=== PATIENT | female | born 1935 | race Caucasian/White ===

== ENCOUNTER 2017-06-19 12:43 | Outpatient (CLI) | payer MEDICARE ==
--- NOTE | 2017-06-19 14:28 | MRI ---
NONCONTRAST ENHANCED MRI OF THE THORACIC SPINE: HISTORY: Thoracic spine pain (M54.6). TECHNIQUE: Multiplanar, multisequence, noncontrast enhanced MRI of the thoracic spine obtained. FINDINGS: Images demonstrate some edema along the anterior aspect of the inferior T7 and the superior T8 endpl ates. Broad-based disk bulge seen at T6-T7, T7-T8, T11-T12. and T12-L1. No significant degree of central stenosis or neural foraminal narrowing is seen. The spinal cord is unremarkable. IMPRESSION: Some broad-based multilevel disk bulges but no significant evidence of central stenosis or neural fo raminal narrowing. POS: [facility]
== END 2017-06-19 12:44 | disposition home or self-care (01) ==
LOC: MRI 12:43
PROVIDERS: ATTEND Nurse Practitioner Family
DX: M54.6 Pain in thoracic spine (principal); M51.24 Other intervertebral disc displacement, thoracic region
CPT/HCPCS: 72146

== ENCOUNTER 2017-06-26 09:41 | Outpatient (CLI) | payer MEDICARE ==
[2017-06-26 11:02] LABS: Bilirubin Negative (Negative); Blood, Urine Negative (Negative); Glucose, Urine (Dipstick) Negative (Negative); Ketone, Urine Negative (Negative); Nitrite Negative (Negative); Protein, Urine (Dipstick) Negative (Neg-Trace); Urobilinogen 0.2 mg/dL (0.2-1.0)
[2017-06-26 11:08] LABS: Bacteria/HPF None Seen HPF (None Seen); Hyaline Casts/LPF 0-3 HYALINE CAST LPF (0-3 Hyaline); Squamous Epithelial 0-3 HPF (0-3); WBC/HPF 0-3 HPF (0-3)
[2017-06-26 11:17] LABS: Anion Gap 13 mmol/L (10-20); BUN (Urea Nitrogen) 16 mg/dL (9.8-20.1); Calc. Creatinine Clearance 0 mL/min (70-130); Calcium 9.5 mg/dL (7.8-10.44); Carbon Dioxide 23 mmol/L (23-31); Chloride 105 mmol/L (98-107); Estimated GFR-MDRD 51; Uric Acid 9.3 mg/dL (2.6-6.0)
--- NOTE | 2017-06-26 14:30 | RAD ---
SUPINE ABDOMEN: History: Kidney stone. FINDINGS/IMPRESSION: There are two calculi overlying the midpole of the left kidney, each measuring approximately 5 mm. Linear calcifications seen to the left of the L3 vertebra could potentially represent calcifications in the mid left ureter. Consider CT scan abdomen/pelvis if there is concern of ureteral calculus. POS: [facility]
--- NOTE | 2017-06-26 14:59 | ULT ---
RENAL SONOGRAM: Date: 06-26-17 History: Renal calculi. FINDINGS: Right kidney measures 9.9 cm x 4 cm with the left kidney measuring 10.2 cm x 4.2 cm. There is a small anechoic structure seen in the midportion of the right kidney which measures 1.6 cm in maximal dimensions and there is evidence of posterior acoustic enhancement. This has sonographic findings most suggestive of a small cyst. This was not imaged on the prior exam. There is no hydronephrosis involving the kidneys bilaterally and no obvious renal calculus delineate d. Urinary bladder is partially distended and has a grossly normal sonographic appearance. IMPRESSION: 1. Small right renal cyst. 2. No evidence of hydronephrosis. 3. No obvious renal calculus is delineated on the sonographic evaluation involving either kidney. POS: [facility]
== END 2017-06-26 09:42 | disposition home or self-care (01) ==
LOC: ULT 09:41
PROVIDERS: ATTEND Urology
DX: N18.9 Chronic kidney disease, unspecified (principal); M10.9 Gout, unspecified; N20.2 Calculus of kidney with calculus of ureter; N28.1 Cyst of kidney, acquired
CPT/HCPCS: 36415; 74000; 76770; 80048; 81001; 83970; 84550; 87086

== ENCOUNTER 2017-09-29 09:25 | Outpatient (CLI) | payer MEDICARE ==
--- NOTE | 2017-09-29 12:31 | MRI ---
MRI OF THE ABDOMEN WITHOUT AND WITH CONTRAST: COMPARISON: CT abdomen/pelvis 07/05/17, 01/28/14, 05/15/13. HISTORY: Left renal calcifications and left adrenal mass. TECHNIQUE: Multiplanar, multisequence MR images were obtained of the abdomen without and with IV contrast. FINDINGS: There is a mass in the left adrenal gland measuring approximately 2.6 cm in greatest dimension. This mass is well circumscribed and demonstrates loss of signal on [id number] images compared to the in -phase images consistent with a fat-containing adrenal adenoma. This mass is grossly stable in size compared to exams dating back to 2013. There are multiple well-circumscribed foci of high T2 signal in the liver that are nonenhancing measu ring up to 3.1 cm in size which represent cysts. No biliary dilatation is seen. The calcifications in the left kidney on CT cannot be seen with MRI on today's study. No hydronephrosis is seen. The g allbladder, kidneys, adrenal glands, spleen, and pancreas are unremarkable. No abdominal adenopathy is seen. Degenerative changes are seen in the spine. IMPRESSION: 1. Left adrenal adenoma. 2. Hepatic cysts. POS: [facility]
[2017-09-29] MEDS ORDERED: Gadobenate Dimeglumine 529 MG/1 ML (20ML VIAL) ONE (16:52)
== END 2017-09-29 09:26 | disposition home or self-care (01) ==
LOC: MRI 09:25
PROVIDERS: ATTEND Urology
DX: E27.9 Disorder of adrenal gland, unspecified (principal); D35.02 Benign neoplasm of left adrenal gland; K76.89 Other specified diseases of liver; M10.9 Gout, unspecified; N20.0 Calculus of kidney; N18.3 Chronic kidney disease, stage 3 (moderate)
CPT/HCPCS: 36415; 74183; 80048; 82088; 82530; 83835; 84244; 84550; A9579

== ENCOUNTER 2017-11-10 16:34 | Outpatient (CLI) | payer MEDICARE ==
[2017-11-10 12:06] LABS: #Eosinphils 0.2 thou/uL (0.0-0.7); #Lymphocytes 1.7 thou/uL (1.20-3.40); #Monocytes 0.6 thou/uL (0.11-0.59); #Neutrophils 3.4 thou/uL (1.40-6.50); %Basophils 0.6 % (0.0-1.0); %Eosinophils 2.9 % (0.0-10.0); %Lymphocytes 29.1 % (21.0-51.0); %Monocytes 9.8 % (0.0-10.0); %Neutrophils 57.5 % (42.0-75.0); Bilirubin Negative (Negative); Blood, Urine Negative (Negative); Clarity CLEAR (Clear); Glucose, Urine (Dipstick) Negative (Negative); Hemoglobin 15.8 g/dL (12.0-16.0); Leukocyte Small (Negative); Mean Corpuscular HGB CONC 32.9 g/dL (32.0-36.0); Mean Corpuscular Hemoglobin 32.6 pg (27.0-31.0); Mean Corpuscular Volume 99.3 fl (81.0-99.0); Mean Platelet Volume 7.7 fL (7.4-10.4); Nitrite Negative (Negative); Platelet Count 235 thou/uL (130-400); Protein, Urine (Dipstick) Negative (Neg-Trace); Red Blood Cell (RBC) Count 4.84 mill/uL (4.20-5.40); Specific Gravity, Urine 1.018 (1.002-1.036); Urobilinogen 0.2 mg/dL (0.2-1.0); White Blood Cell (WBC) Count 5.9 thou/uL (4.8-10.8)
[2017-11-10 12:11] LABS: INR-International Normal Ratio 0.9; Prothrombin Time 12.6 SEC (12.0-14.7)
[2017-11-10 12:20] LABS: Bacteria/HPF None Seen HPF (None Seen); Hyaline Casts/LPF 0-3 HYALINE CAST LPF (0-3 Hyaline); RBC/HPF 0-3 HPF (0-3); Squamous Epithelial 0-3 HPF (0-3)
[2017-11-10 12:27] LABS: Anion Gap 8 mmol/L (10-20); BUN (Urea Nitrogen) 17 mg/dL (9.8-20.1); Calc. Creatinine Clearance 0 mL/min (70-130); Carbon Dioxide 28 mmol/L (23-31); Chloride 107 mmol/L (98-107); Estimated GFR-MDRD 57; Glucose 95 mg/dL (83-110); Sodium 139 mmol/L (136-145)
--- NOTE | 2017-11-10 13:43 | RAD ---
CHEST 2 VIEWS: History Preop. COMPARISON: 09/18/17. FINDINGS: Cardiac silhouette and pulmonary vasculature are unremarkable. Mediastinum is midline. There is no confluent airspace consolidation, pneumothorax, or pleural fluid evident. Rightward convex curvature of the upper thoracic spine is apparent. IMPRESSION: No active cardiopulmonary abnormalities are demonstrated. POS: [facility]
--- NOTE | 2017-11-11 08:10 | EKG ---
Test Reason : Blood Pressure : / mmHG Vent. Rate : 062 BPM Atrial Rate : 062 BPM P-R Int : 186 ms QRS Dur : 086 ms QT Int : 426 ms P-R-T Axes : 022 -28 007 degrees QTc Int : 432 ms Normal sinus rhythm Voltage criteria for left ventricular hypertrophy Nonspecific ST abnormality Abnormal ECG When compared with ECG of 27-OCT-2014 09:36, QRS axis Shifted left Confirmed by DR. Rosalia VINES ([id number]) on 11/11/2017 8:10:27 AM Referred By: GUILLERMO Confirmed By:DR. Rosalia VINES
== END 2017-11-10 16:35 | disposition home or self-care (01) ==
LOC: LABBT 16:34
PROVIDERS: ATTEND Orthopaedic Surgery
DX: Z01.818 Encounter for other preprocedural examination (principal); M17.11 Unilateral primary osteoarthritis, right knee
CPT/HCPCS: 71046; 80048; 81001; 85025; 85610; 86850; 86900; 86901; 87081; 93005; 93010

== ENCOUNTER 2017-11-14 06:43 | Day surgery (SDC) | payer MEDICARE ==
[2017-11-10 11:09] VITALS: BMI 29.5
[2017-11-14] MEDS ORDERED: diphenhydrAMINE 25 MG CAP PO PRN (06:54)
[2017-11-14] MEDS ORDERED: Promethazine HCl 25 MG/ML VIAL IM PRN ×3 (06:54→10:21)
[2017-11-14] MEDS ORDERED: Acetaminophen 325 MG TAB PO PRN (06:54)
[2017-11-14] MEDS ORDERED: Ondansetron HCl/PF 4 MG/2 ML Vial IVP PRN ×3 (06:54→10:21)
[2017-11-14] MEDS ORDERED: Zolpidem Tartrate 5 MG TAB PO PRN ×2 (06:54→08:48)
[2017-11-14] MEDS ORDERED: oxyCODONE/Acetaminophen 5 mg/325 mg Tablet PO PRN ×2 (06:57)
[2017-11-14] MEDS ORDERED: Tranexamic Acid 1,000 MG in Sodium Chloride 0.9% 100 ML IVPB SCH (07:00)
[2017-11-14] MEDS ORDERED: Levofloxacin 500 mg/D5W 100 ml Premix Bag ONE (07:41)
[2017-11-14] MEDS ORDERED: Midazolam HCl 2 mg/2 ml Vial ONE (08:14)
[2017-11-14] MEDS ORDERED: Fentanyl 250 MCG/5 ML VIAL ONE ×2 (08:15→10:39)
[2017-11-14] MEDS ORDERED: Ropivacaine HCl/PF 250 ML in Premix Bag 1 BAG NERVE BLCK SCH (08:48)
[2017-11-14] MEDS ORDERED: Fentanyl 100 MCG/2 ML VIAL IV PRN (08:49)
[2017-11-14] MEDS ORDERED: HYDROcodone/Acetaminophen 7.5/325 mg Tablet PO PRN (08:51)
[2017-11-14] MEDS ORDERED: Fentanyl 100 MCG/2 ML VIAL ONE (09:21)
[2017-11-14] MEDS ORDERED: Promethazine HCl 25 MG/ML VIAL SLOW IVP PRN (10:21)
--- NOTE | 2017-11-14 10:27 | OP ---
DATE OF PROCEDURE: 11/14/2017 TITLE OF PROCEDURE: Right total knee arthroplasty using [place] [employer] 3 femur, 3 tibia, 9 mm CSX 3 polyethylene, and A29 patella. SURGEON: Jose Sapp M.D. TESTER VIBRATOR EQUIPMENT: Mani Caputo PA-C. BLOOD LOSS: Minimal. SPECIMEN: None. DRAINS: None. COMPLICATIONS: None. TOURNIQUET TIME: 47 minutes. PROCEDURE IN DETAIL: After informed consent was obtained in the preoperative holding area. The cherise ent was taken to the operative suite where general anesthesia was induced. Once adequate level of ge neral anesthesia was obtained, the patient was positioned and a well-padded tourniquet was placed kandi und the right proximal thigh. The right lower extremity was then prepped and draped in the usual margie rile fashion. Prior to exsanguination, a time out was called and all members of the surgical team ag malcolm upon site, surgeon, and patient. The extremity was then exsanguinated and the tourniquet was ra ised. A midline longitudinal incision was then made directly over the patella extending two fingerbr eadths above the superior pole of the patella and two fingerbreadths inferior to the inferior patella r pole of the patella. Deeper subcutaneous layers were dissected sharply and local bleeding was cont rolled with Bovie electrocautery. A quad tendon longitudinal split was then made sharply and a media n parapatellar arthrotomy was carried out both sharp and with Bovie electrocautery, carried down to o ne fingerbreadth medial to the tibial tubercle. The knee was then placed into flexion and the patell a was everted nicely, and a copious fat pad ectomy was performed allowing for greater exposure of the tibia. The computer-assisted distal femoral fiducial was then placed and pinned firmly, and the dis doreen femoral cutting guide was pinned firmly into place. The oscillating saw was then used to remove the appropriate amount of bone. The 4-in-1 cutting block was then placed on the distal femur and the oscillating saw was used to remove the appropriate amount of bone off of the anterior, posterior, an d chamfer cuts. After completion of bone cuts, the anterior cruciate ligament was resected sharply a nd the posterior cruciate ligament retractor was placed and the tibia was subluxed for better exposur e. Partial meniscectomies were carried out, and the tibial computer-assisted fiducial was pinned, an d the cutting guide was placed. Oscillating saw was then used to remove the bone with Hohmann retrac tors used to take care and protect the collateral ligaments. After the tibial resection was performe d, a laminar annual giving manager was placed in between the freshened bone cuts. The knee placed at 90 degrees a nd further bilateral meniscectomies were carried out, and the curved osteotome and curettage was used to remove any excess bone spurs in the posterior compartment. Exparel was then injected into the po sterior capsule, nasir-articular synovia, pre-patella synovia, and musculature surrounding the capsule . The trial femoral component, tibial baseplate were placed with the appropriate polyethylene trial insert with an appropriate polyethylene spacer and patellar button. The knee was taken through full range of motion with flexion and extension from 0-90 degrees and patellar broach squarely in the troc hlea without any squinting or subluxation noted. The knee was also stable to varus and valgus stress ing at 0, 15, 45, and 90 degrees of flexion. The drawer was negative. All trial components were then removed and the keel punch was used to provide the appropriate defect in the tibia with a mallet. Heron he freshened bone cuts were copiously irrigated with pulsatile lavage of about 1-1/2 liters to remove all excess debris. The freshened bone cuts were then dried and with suction and lap sponge. The kn ee was placed in flexion and retractors were placed to provide access to all bone cuts. Tobramycin i mpregnated methyl methacrylate cement was then placed on the freshened bone cuts and implants which w ere malleted firmly into place. Curettage and [place] elevators were used to remove any excess bone ce ment. The knee was placed into full extension and the patellar button was placed under compression, and the cement was allowed to cure. Once completed, the components were again taken through full ran ge of motion and copious irrigation of the knee was carried out with another liter of normal saline. All components were inspected fully with full range of motion and varus and valgus stressing. There was no laxity noted and full extension was observed clinically. Primary closure was accomplished wit h #2 interrupted Vicryl stitch of the arthrotomy defect. This was oversewn with a #2 running Adam mckinley stitch. The gravitational platelet system was then injected into the arthrotomy prior to closu re. The subcutaneous layer was then closed with a running 0 barbed Monocryl stitch and skin closure accomplished with a running subcuticular 3-0 Monocryl barbed Quill stitch and augmented with cement o n the skin. Tourniquet was lowered. Good spontaneous return of distal pulses was noted clinically a nd a sterile dressing was applied to the incision. The procedure was terminated without any complica tions. The patient was awakened in the operative suite and the tourniquet was removed, and the patie nt was taken to the recovery room in stable condition.
--- NOTE | 2017-11-14 11:38 | RAD ---
PORTABLE RIGHT KNEE TWO VIEWS: History: Total knee replacement. FINDINGS/IMPRESSION: There are recent post op changes of total knee arthroplasty in good position and alignment. Soft tiss ue air is present. POS: H
--- NOTE | 2017-11-14 12:54 | PDOC.PN ---
- Subjective Encounter Start Date: 11/14/17 Encounter Start Time: 12:53 -: old records requested/rev Patient seen and examined. No new complaints. No overnight events s/p knee replacement, consulted for medical management has nerve block, has foey, pain controlled - Objective MAR Reviewed: Yes Vital Signs & Weight: Weight Weight 172 lb I&O: 11/13/17 11/14/17 11/15/17 06:59 06:59 06:59 Intake Total 150 Output Total 200 Balance -50 Radiology Reviewed by me: Yes Phys Exam - Physical Examination Constitutional: NAD HEENT: PERRLA, moist MMs, sclera anicteric Neck: no JVD, supple Respiratory: no wheezing, no rales, no rhonchi Cardiovascular: RRR, no significant murmur, no rub Gastrointestinal: soft, non-tender, no distention, positive bowel sounds Musculoskeletal: no edema, pulses present Neurological: non-focal, normal sensation Psychiatric: normal affect, A&O x 3 Skin: no rash, normal turgor Dx/Plan (1) Status post right knee replacement Code(s): Z96.651 - PRESENCE OF RIGHT ARTIFICIAL KNEE JOINT Status: Acute (2) Hypertension Code(s): I10 - ESSENTIAL (PRIMARY) HYPERTENSION Status: Chronic (3) Gout Code(s): M10.9 - GOUT, UNSPECIFIED Status: Chronic (4) Dyslipidemia Code(s): E78.5 - HYPERLIPIDEMIA, UNSPECIFIED Status: Chronic (5) Anxiety and depression Code(s): F41.8 - OTHER SPECIFIED ANXIETY DISORDERS Status: Chronic (6) GERD (gastroesophageal reflux disease) Code(s): K21.9 - GASTRO-ESOPHAGEAL REFLUX DISEASE WITHOUT ESOPHAGITIS Status: Chronic (7) Chronic low back pain Code(s): M54.5 - LOW BACK PAIN; G89.29 - OTHER CHRONIC PAIN Status: Chronic - Plan cont current plan of care, PT/OT * continue aspirin for DVT prophylaxis * continue home medication * code status-full code, pt is making decision * medication reviewed as below * symptomatic treatment * nerve block * pain control with pain meds * PT as per [facility] protocol treatment Review of Systems - Review of Systems Constitutional: negative: fever, chills, sweats, weakness, malaise, other ENT: negative: Ear Pain, Ear Discharge, Nose Pain, Nose Discharge, Nose Congestion, Mouth Pain, Mouth Swelling, Throat Pain, Throat Swelling, Other Respiratory: negative: Cough, Dry, Shortness of Breath, Hemoptysis, SOB with Excertion, Pleuritic Pain, Sputum, Wheezing Cardiovascular: negative: chest pain, palpitations, orthopnea, paroxysmal nocturnal dyspnea, edema, light headedness, other Gastrointestinal: negative: Nausea, Vomiting, Abdominal Pain, Diarrhea, Constipation, Melena, Hematochezia, Other Genitourinary: negative: Dysuria, Frequency, Incontinence, Hematuria, Retention , Other Musculoskeletal: negative: Neck Pain, Shoulder Pain, Arm Pain, Back Pain, Hand Pain, Leg Pain, Foot Pain, Other Skin: negative: Rash, Lesions, Almas, Bruising, Other - Medications/Allergies Allergies/Adverse Reactions: Allergies Allergy/AdvReac Type Severity Reaction Status Date / Time bacitracin [From Polysporin] Allergy Verified 11/10/17 11:11 codeine Allergy Verified 11/10/17 11:11 Penicillins Allergy Verified 11/10/17 11:11 polymyxin B sulfate Allergy Verified 11/10/17 11:11 [From Polysporin] tramadol Allergy Verified 11/10/17 11:11 Medications: Current Medications Acetaminophen (Tylenol) 650 mg PO Q4H PRN PRN Reason: DUNCAN/ T > 101F; Mild Pain (1-3) Hydrocodone Bitart/Acetaminophen ([place] 7.5/325) 1 tab PO Q4H PRN PRN Reason: Mild Pain (1-3) Hydrocodone Bitart/Acetaminophen ([place] 7.5/325) 2 tab PO Q4H PRN PRN Reason: Moderate Pain (4-6) Allopurinol (Zyloprim) 300 mg PO HS [facility] Amlodipine Besylate (Norvasc) 5 mg PO DAILY [facility] Aspirin (Ecotrin) 81 mg PO BID [facility] Diphenhydramine HCl (Benadryl) 25 mg PO Q6H PRN PRN Reason: Itching Fentanyl (Sublimaze) 50 mcg IV Q1H PRN PRN Reason: Breakthrough pain Fentanyl (Pacu-Sublimaze) 50 mcg SLOW IVP Q10MIN PRN PRN Reason: Moderate to Severe Pain (6-10) Stop: 11/14/17 13:21 Ferrous Gluconate (Fergon) 324 mg PO BID [facility] Hydralazine HCl (Apresoline) 50 mg PO BID [facility] Levofloxacin 500 mg/ Device 100 mls @ 100 mls/hr IVPB 0900 [facility] Stop: 11/15/17 09:59 Sodium Chloride (Normal Saline 0.9%) 1,000 mls @ 100 mls/hr IV .Q10H [facility] Vancomycin HCl 1 gm/ Device 200 mls @ 200 mls/hr IVPB 2100 [facility] Stop: 11/14/17 21:59 Ropivacaine 250 ml/ Device 250 mls @ 10 mls/hr NERVE BLCK INF [facility] Iron/Minerals/Multivitamins (Theragran M) 1 tab PO DAILY [facility] Ketorolac Tromethamine (Toradol) 15 mg IVP Q6HR [facility] Stop: 11/16/17 06:01 Metoprolol Succinate (Toprol Xl) 200 mg PO DAILY [facility] Ondansetron HCl (Zofran) 4 mg IVP Q6H PRN PRN Reason: Nausea/Vomiting Ondansetron HCl (Pacu-Zofran) 4 mg IVP ONE PRN PRN Reason: Nausea/Vomiting Stop: 11/14/17 13:21 Oxycodone/Acetaminophen (Percocet 5/325) 1 tab PO Q4H PRN PRN Reason: Pain Oxycodone/Acetaminophen (Percocet 5/325) 2 tab PO Q4H PRN PRN Reason: Pain (Pot Chloride/Brian Phos/Mag [Medi-Lyte] 1 Tab/ Hm Med 0 each PO HS [facility] Promethazine HCl (Phenergan) 12.5 mg IM Q4H PRN PRN Reason: Nausea/Vomiting Promethazine HCl (Phenergan) 12.5 mg IM Q4H PRN PRN Reason: Nausea Promethazine HCl (Pacu-Phenergan) 6.25 mg SLOW IVP ONE PRN PRN Reason: Nausea/Vomiting Stop: 11/14/17 13:21 Promethazine HCl (Pacu-Phenergan) 6.25 mg IM ONE PRN PRN Reason: Nausea/Vomiting Stop: 11/14/17 13:21 Senna/Docusate Sodium (Senokot S) 2 tab PO BID [facility] Simvastatin (Zocor) 10 mg PO HS [facility] Sodium Chloride (Flush - Normal Saline) 10 ml IVF PRN PRN PRN Reason: Saline Flush Tranexamic Acid (Tranexamic Acid) 1,000 mg IVP [facility] Stop: 11/14/17 14:00 Zolpidem Tartrate (Ambien) 5 mg PO HSPRN PRN PRN Reason: Insomnia History of Present Illnes - History of Present Illness Reason for Visit: admitted for right knee replacement History of Present Illness: consulted for medical management, s/p knee replacement on right side no pain, no chest pain, failure of outpt therapy for osteoarthritis of knee, required knee replacement - Past Medical History Cardiac: HTN, Hyperlipidemia Gastrointestinal: GERD Psych: Anxiety, Depression Musculoskeletal: Chronic low back pain ENT: Allergic rhinitis - Past Surgical History Past Surgical History: Appendectomy, Hysterectomy, Total Knee Replacement ( laminectomy, bladder suspension) - Past Family History Family History: None - Past Social History Smoke: No Alcohol: None Drugs: None Lives: With Family Domestic Violence: Negative
[2017-11-14] MEDS ORDERED: Eucerin (Mineral Oil/Petrolatum,White) 30 gm Jar TOP PRN (13:09)
[2017-11-14] MEDS ORDERED: Diabetic Tussin 200 MG/10 ML UDCUP PO PRN (13:09)
[2017-11-14] MEDS ORDERED: Chloraseptic Spray 180 ml Bottle PO PRN (13:09)
[2017-11-14] MEDS ORDERED: Bisacodyl 10 MG SUPP PR PRN (13:09)
[2017-11-14] MEDS ORDERED: Mag-Al 1200 mg/1200 mg/30 ML UDCUP PO PRN (13:09)
[2017-11-14] MEDS ORDERED: hydrALAZINE 20 MG/ML VIAL SLOW IVP PRN (13:09)
[2017-11-14] MEDS ORDERED: Artificial Tears 18 DROP/0.9 ML EA EYE PRN (13:09)
[2017-11-14] MEDS ORDERED: Loperamide HCl 2 MG CAP PO PRN (13:09)
[2017-11-14] MEDS ORDERED: Milk Of Magnesia 30 ML UDCUP PO PRN (13:09)
[2017-11-14] MEDS ORDERED: Ropivacaine 0.5% HCl/PF (150 MG/30 ML VIAL) ONE (13:49)
[2017-11-14] MEDS ORDERED: Ropivacaine 0.2% HCl/PF (40 MG/20 ML VIAL) ONE (13:49)
[2017-11-14] MEDS ORDERED: Ketorolac Tromethamine 30 MG/ML VIAL IM SCH (14:00)
[2017-11-14] MEDS ORDERED: Ketorolac Tromethamine 30 MG/ML VIAL ONE (14:33)
[2017-11-14] MEDS ORDERED: Propofol 200 MG/20 ML VIAL ONE (14:33)
[2017-11-14] MEDS ORDERED: Dexamethasone 20 MG/5 ML VIAL ONE (14:33)
[2017-11-14] MEDS ORDERED: Ondansetron HCl/PF 4 MG/2 ML Vial ONE (14:33)
[2017-11-14] MEDS ORDERED: PHENYLEPHRINE-NS 100 MCG/ML 10 ML SYRINGE ONE (14:33)
[2017-11-14] MEDS: Amlodipine 5 MG TAB PO SCH (16:17)
[2017-11-14] MEDS: Sodium Chloride 0.9% 1,000 ML IV SCH ×2 (16:17→16:22)
[2017-11-14] MEDS: Aspirin 81 mg Enteric Coated Tablet PO SCH ×2 (16:18→21:08)
[2017-11-14] MEDS: hydrALAZINE 25 MG TAB PO SCH ×2 (16:18→21:09)
[2017-11-14] MEDS: Ferrous Gluconate 324 MG TAB PO SCH ×2 (16:18→21:08)
[2017-11-14] MEDS: Multivitamin W/ Minerals 1 TAB PO SCH (16:18)
[2017-11-14] MEDS: Senokot S 8.6-50 MG TAB PO SCH ×2 (16:19→21:09)
[2017-11-14] MEDS: Ketorolac Tromethamine 30 MG/ML VIAL IVP SCH ×3 (16:19→23:08)
[2017-11-14] MEDS ORDERED: MAGNESIUM PO SCH (21:00)
[2017-11-14] MEDS ORDERED: Vancomycin HCl 1 GM in Premix Bag 1 BAG IVPB SCH (21:00)
[2017-11-14] MEDS ORDERED: POTASSIUM CHLORIDE PO SCH (21:00)
[2017-11-14] MEDS ORDERED: [UNRECOGNIZED DRUG - OTHER] PO SCH (21:00)
[2017-11-14] MEDS ORDERED: CALCIUM PHOSPHATE PO SCH (21:00)
[2017-11-14] MEDS ORDERED: Simvastatin 5 MG TAB PO SCH (21:00)
[2017-11-14] MEDS ORDERED: Allopurinol 300 MG TAB PO SCH (21:00)
[2017-11-14] MEDS: Famotidine 20 MG TAB PO SCH (21:08)
[2017-11-15] MEDS: Sodium Chloride 0.9% 1,000 ML IV SCH ×2 (04:29→14:02)
[2017-11-15 04:44] LABS: Mean Corpuscular HGB CONC 33.5 g/dL (32.0-36.0); Mean Corpuscular Hemoglobin 33.5 pg (27.0-31.0); Mean Platelet Volume 8.2 fL (7.4-10.4); Platelet Count 199 thou/uL (130-400); RBC Distribution Width 11.9 % (11.5-14.5); Red Blood Cell (RBC) Count 4.18 mill/uL (4.20-5.40); White Blood Cell (WBC) Count 14.5 thou/uL (4.8-10.8)
[2017-11-15] MEDS: Ketorolac Tromethamine 30 MG/ML VIAL IVP SCH ×2 (06:33→13:58)
[2017-11-15] MEDS: HYDROcodone/Acetaminophen 7.5/325 mg Tablet PO PRN ×2 (07:58→13:59)
[2017-11-15] MEDS: hydrALAZINE 25 MG TAB PO SCH (07:59)
[2017-11-15] MEDS: Multivitamin W/ Minerals 1 TAB PO SCH (07:59)
[2017-11-15] MEDS: Famotidine 20 MG TAB PO SCH (08:00)
[2017-11-15] MEDS: Ferrous Gluconate 324 MG TAB PO SCH (08:00)
[2017-11-15] MEDS: Senokot S 8.6-50 MG TAB PO SCH (08:00)
[2017-11-15] MEDS: Amlodipine 5 MG TAB PO SCH (08:00)
[2017-11-15] MEDS: Aspirin 81 mg Enteric Coated Tablet PO SCH (08:01)
--- NOTE | 2017-11-15 10:40 | PDOC.PN ---
- Subjective Encounter Start Date: 11/15/17 Encounter Start Time: 08:10 Patient seen and examined. No new complaints. No overnight events - Objective Resuscitation Status: Resuscitation Status FULL:Full Resuscitation MAR Reviewed: Yes Vital Signs & Weight: Vital Signs (12 hours) Temp Pulse Resp BP Pulse Ox 11/15/17 08:00 61 11/15/17 07:59 61 11/15/17 07:45 98.0 F 61 18 135/78 97 11/15/17 04:00 97.8 F 61 16 130/75 92 L 11/15/17 00:15 97.7 F 68 16 136/76 96 Weight Weight 172 lb I&O: 11/14/17 11/15/17 11/16/17 06:59 06:59 06:59 Intake Total 1450 Output Total 1700 Balance -250 Result Diagrams: 11/15/17 03:05 Phys Exam - Physical Examination Constitutional: NAD HEENT: PERRLA, moist MMs, sclera anicteric Neck: no JVD, supple Respiratory: no wheezing, no rales, no rhonchi Cardiovascular: RRR, no significant murmur, no rub Gastrointestinal: soft, non-tender, no distention, positive bowel sounds Musculoskeletal: no edema, pulses present Neurological: non-focal, normal sensation, moves all 4 limbs Psychiatric: normal affect, A&O x 3 Skin: no rash, normal turgor Dx/Plan (1) Status post right knee replacement Code(s): Z96.651 - PRESENCE OF RIGHT ARTIFICIAL KNEE JOINT Status: Acute (2) Hypertension Code(s): I10 - ESSENTIAL (PRIMARY) HYPERTENSION Status: Chronic (3) Gout Code(s): M10.9 - GOUT, UNSPECIFIED Status: Chronic (4) Dyslipidemia Code(s): E78.5 - HYPERLIPIDEMIA, UNSPECIFIED Status: Chronic (5) Anxiety and depression Code(s): F41.8 - OTHER SPECIFIED ANXIETY DISORDERS Status: Chronic (6) GERD (gastroesophageal reflux disease) Code(s): K21.9 - GASTRO-ESOPHAGEAL REFLUX DISEASE WITHOUT ESOPHAGITIS Status: Chronic (7) Chronic low back pain Code(s): M54.5 - LOW BACK PAIN; G89.29 - OTHER CHRONIC PAIN Status: Chronic - Plan cont current plan of care, PT/OT * continue aspirin for DVT prophylaxis * continue home medication * code status-full code, pt is making decision * medication reviewed as below * symptomatic treatment * nerve block * pain control with pain meds * PT as per [facility] protocol treatment. * pepcid for Gi prophylaxis. * possible discharge today * will sign off * resume home medication on discharge * pain meds as per primary team on discharge Review of Systems - Review of Systems Constitutional: negative: fever, chills, sweats, weakness, malaise, other Eyes: negative: Pain, Vision Change, Conjunctivae Inflammation, Eyelid Inflammation, Redness, Other ENT: negative: Ear Pain, Ear Discharge, Nose Pain, Nose Discharge, Nose Congestion, Mouth Pain, Mouth Swelling, Throat Pain, Throat Swelling, Other Respiratory: negative: Cough, Dry, Shortness of Breath, Hemoptysis, SOB with Excertion, Pleuritic Pain, Sputum, Wheezing Cardiovascular: negative: chest pain, palpitations, orthopnea, paroxysmal nocturnal dyspnea, edema, light headedness, other Gastrointestinal: negative: Nausea, Vomiting, Abdominal Pain, Diarrhea, Constipation, Melena, Hematochezia, Other Genitourinary: negative: Dysuria, Frequency, Incontinence, Hematuria, Retention , Other Musculoskeletal: negative: Neck Pain, Shoulder Pain, Arm Pain, Back Pain, Hand Pain, Leg Pain, Foot Pain, Other Skin: negative: Rash, Lesions, Almas, Bruising, Other - Medications/Allergies Allergies/Adverse Reactions: Allergies Allergy/AdvReac Type Severity Reaction Status Date / Time bacitracin [From Polysporin] Allergy Verified 11/10/17 11:11 codeine Allergy Verified 11/10/17 11:11 Penicillins Allergy Verified 11/10/17 11:11 polymyxin B sulfate Allergy Verified 11/10/17 11:11 [From Polysporin] tramadol Allergy Verified 11/10/17 11:11 Medications: Current Medications Acetaminophen (Tylenol) 650 mg PO Q4H PRN PRN Reason: DUNCAN/ T > 101F; Mild Pain (1-3) Hydrocodone Bitart/Acetaminophen ([place] 7.5/325) 1 tab PO Q4H PRN PRN Reason: Mild Pain (1-3) Hydrocodone Bitart/Acetaminophen ([place] 7.5/325) 2 tab PO Q4H PRN PRN Reason: Moderate Pain (4-6) Last Admin: 11/15/17 07:58 Dose: 2 tab Al Hydroxide/Mg Hydroxide (Maalox) 15 ml PO Q4H PRN PRN Reason: Heartburn or Indigestion Allopurinol (Zyloprim) 300 mg PO HS [facility] Last Admin: 11/14/17 21:08 Dose: 300 mg Amlodipine Besylate (Norvasc) 5 mg PO DAILY [facility] Last Admin: 11/15/17 08:00 Dose: 5 mg Artificial Tears (Tears Naturale) 0 drop EA EYE PRN PRN PRN Reason: Dry Eyes Aspirin (Ecotrin) 81 mg PO BID [facility] Last Admin: 11/15/17 08:01 Dose: 81 mg Bisacodyl (Dulcolax) 10 mg DE DAILYPRN PRN PRN Reason: Constipation Diphenhydramine HCl (Benadryl) 25 mg PO Q6H PRN PRN Reason: Itching Famotidine (Pepcid) 20 mg PO BID [facility] Last Admin: 11/15/17 08:00 Dose: 20 mg Fentanyl (Sublimaze) 50 mcg IV Q1H PRN PRN Reason: Breakthrough pain Ferrous Gluconate (Fergon) 324 mg PO BID [facility] Last Admin: 11/15/17 08:00 Dose: 324 mg Guaifenesin (Robitussin Sf) 200 mg PO Q4H PRN PRN Reason: Cough Hydralazine HCl (Apresoline) 50 mg PO BID [facility] Last Admin: 11/15/17 07:59 Dose: 50 mg Hydralazine HCl (Apresoline) 10 mg SLOW IVP Q4H PRN PRN Reason: Systolic BP > 180 Sodium Chloride (Normal Saline 0.9%) 1,000 mls @ 100 mls/hr IV .Q10H [facility] Last Admin: 11/15/17 04:29 Dose: Not Given Ropivacaine 250 ml/ Device 250 mls @ 10 mls/hr NERVE BLCK INF [facility] Iron/Minerals/Multivitamins (Theragran M) 1 tab PO DAILY [facility] Last Admin: 11/15/17 07:59 Dose: 1 tab Ketorolac Tromethamine (Toradol) 15 mg IVP Q6HR [facility] Stop: 11/16/17 06:01 Last Admin: 11/15/17 06:33 Dose: 15 mg Loperamide HCl (Imodium) 2 mg PO PRN PRN PRN Reason: Diarrhea/Loose Stools Magnesium Hydroxide (Milk Of Magnesium) 30 ml PO DAILYPRN PRN PRN Reason: Constipation Metoprolol Succinate (Toprol Xl) 200 mg PO DAILY [facility] Last Admin: 11/15/17 07:59 Dose: 200 mg Mineral Oil/White Petrolatum (Eucerin Cream) 0 gm TOP BIDPRN PRN PRN Reason: Dry Skin Ondansetron HCl (Zofran) 4 mg IVP Q6H PRN PRN Reason: Nausea/Vomiting Oxycodone/Acetaminophen (Percocet 5/325) 1 tab PO Q4H PRN PRN Reason: Pain Oxycodone/Acetaminophen (Percocet 5/325) 2 tab PO Q4H PRN PRN Reason: Pain (Pot Chloride/Brian Phos/Mag [Medi-Lyte] 1 Tab/ Hm Med 0 each PO [facility] Phenol (Chloraseptic [place] 180 Ml Bot) 0 ml PO PRN PRN PRN Reason: Sore Throat Promethazine HCl (Phenergan) 12.5 mg IM Q4H PRN PRN Reason: Nausea/Vomiting Promethazine HCl (Phenergan) 12.5 mg IM Q4H PRN PRN Reason: Nausea Senna/Docusate Sodium (Senokot S) 2 tab PO BID [facility] Last Admin: 11/15/17 08:00 Dose: 2 tab Simvastatin (Zocor) 10 mg PO [facility] Last Admin: 11/14/17 21:08 Dose: 10 mg Sodium Chloride (Flush - Normal Saline) 10 ml IVF PRN PRN PRN Reason: Saline Flush Zolpidem Tartrate (Ambien) 5 mg PO HSPRN PRN PRN Reason: Insomnia
--- NOTE | 2017-11-15 11:17 | DIS ---
DATE OF ADMISSION: 11/14/2017 DATE OF DISCHARGE: 11/15/2017 PRIMARY CARE PROVIDER: Leny Ely M.D. DISCHARGE DISPOSITION: Home. PRIMARY DISCHARGE DIAGNOSIS: Right total knee replacement. SECONDARY DISCHARGE DIAGNOSES: Anxiety and depression, chronic low back pain, dyslipidemia, gastroes ophageal reflux disease, gout, hypertension and lumbar stenosis. PRIMARY PROCEDURE/OPERATION: Right total knee replacement. RADIOLOGICAL INVESTIGATION: Knee x-ray. SIGNIFICANT LABS: Hemoglobin 14.0. DISCHARGE MEDICATIONS: The patient will continue all her previous medications. Allopurinol 300 mg p .o. at bedtime, amlodipine 5 mg p.o. daily, aspirin 81 mg p.o. b.i.d., biotin 1 capsule daily, hydral azine 50 mg b.i.d., Toprol-XL 200 mg daily, oxycodone 1 or 2 tablets q.4 hourly p.r.n. and pravastati n 20 mg p.o. at bedtime. CONTRAINDICATIONS: None. CODE STATUS: FULL CODE. INPATIENT CONSULTANTS: Dr. Sapp was primary. Sound team was consulted for medical management. TEST RESULTS PENDING ON DISCHARGE: None. ALLERGIES: BACITRACIN, CODEINE, PENICILLIN, TRAMADOL and POLYMYXIN B. DISCHARGE PLAN: Post hospital, the patient will follow up with primary care physician and Dr. Jose Sapp as instructed. HOSPITAL COURSE: An 82-year-old female who was admitted by Dr. Jose Sapp for elective admission f or right total knee replacement. After surgery, Sound team was consulted for medical management. We restarted the patient's home medication while in the hospital. The patient's all medical problems r emained stable. The patient did well per [facility] protocol and [facility]. The patient is seen and examined at bedside today. Please see my progress note from today for furthe r details. We will sign off.
[2017-11-15 16:34] VITALS: BP 165/80; TEMP 97.7
== END 2017-11-15 17:35 | disposition home or self-care (01) ==
LOC: SDC 06:43 → SURG B 06:54 → SDC 11-15 17:35
PROVIDERS: ATTEND Orthopaedic Surgery
PROC: 0SRC0J9 Replacement of Right Knee Joint with Synthetic Substitute, Cemented, Open Approach (ICD-10-PCS; principal; 2017-11-14)
PROC: 8E0YXBZ Computer Assisted Procedure of Lower Extremity (ICD-10-PCS; 2017-11-14)
DX: M17.11 Unilateral primary osteoarthritis, right knee (principal); F41.8 Other specified anxiety disorders; G89.29 Other chronic pain; M54.5 Low back pain; E78.5 Hyperlipidemia, unspecified; K21.9 Gastro-esophageal reflux disease without esophagitis; M10.9 Gout, unspecified; I10 Essential (primary) hypertension; M48.061 Spinal stenosis, lumbar region without neurogenic claudication; E78.00 Pure hypercholesterolemia, unspecified; I35.1 Nonrheumatic aortic (valve) insufficiency; F43.23 Adjustment disorder with mixed anxiety and depressed mood; Z88.0 Allergy status to penicillin; Z88.1 Allergy status to other antibiotic agents; Z88.5 Allergy status to narcotic agent; Z79.899 Other long term (current) drug therapy; Z96.652 Presence of left artificial knee joint
CPT/HCPCS: 20985; 27447; 73560; 82962; 85027; 86850; 86900; 86901; 97110; 97116 ×2; 97139; 97150; 97530; C1713; C1776; G8978; G8979; 36415; 36416; J1885; J1956; J2250; J2795; J3010; J3370

== ENCOUNTER 2017-11-15 20:22 | Observation (INO) | payer MEDICARE ==
[~2017-11-15 20:22] MED LIST: Lidocaine 1% PF 5 ML VIAL ONE; Propofol 200 MG/20 ML VIAL ONE; ePHEDrine/0.9% NaCl/PF SYRINGE 50 mg/10 ml ONE
[2017-11-15] MEDS ORDERED: Adacel (T-DAP) 0.5 ML VIAL ONE (20:42)
[2017-11-15] MEDS ORDERED: Bupivacaine 0.5% 10 ML VIAL ONE (21:20)
[2017-11-15] MEDS ORDERED: Neomycin-Polymyxin 1 ML AMP ONE (21:21)
[2017-11-15] MEDS ORDERED: Acetaminophen 325 MG TAB PO PRN (21:51)
[2017-11-15] MEDS ORDERED: Fentanyl 100 MCG/2 ML VIAL SLOW IVP PRN (21:51)
[2017-11-15] MEDS ORDERED: HYDROcodone/Acetaminophen 5/325 mg Tablet PO PRN (21:51)
[2017-11-15] MEDS ORDERED: Ondansetron HCl/PF 4 MG/2 ML Vial IV PRN (21:51)
[2017-11-15] MEDS ORDERED: oxyCODONE/Acetaminophen 5 mg/325 mg Tablet PO PRN (21:55)
[2017-11-15] MEDS ORDERED: RENALLY ADJUST ALL ANTIBIOTICS FS PRN (22:00)
[2017-11-15] MEDS ORDERED: Clindamycin/D5W 900 MG in Premix Bag 1 BAG IVPB SCH (22:00)
[2017-11-15] MEDS ORDERED: Levofloxacin 500 mg/D5W 100 ml Premix Bag ONE (22:02)
[2017-11-15] MEDS ORDERED: Clindamycin/D5W 900 mg/50 ml Premix Bag ONE (22:02)
[2017-11-15] MEDS ORDERED: Promethazine HCl 25 MG/ML VIAL IM PRN (23:18)
[2017-11-15] MEDS ORDERED: Promethazine HCl 25 MG/ML VIAL SLOW IVP PRN (23:18)
[2017-11-15] MEDS ORDERED: Ondansetron HCl/PF 4 MG/2 ML Vial IVP PRN (23:18)
[2017-11-15] MEDS ORDERED: Fentanyl 250 MCG/5 ML VIAL ONE (23:22)
[2017-11-16] MEDS: Ketorolac Tromethamine 30 MG/ML VIAL IVP SCH ×5 (00:22→23:42)
[2017-11-16 00:38] VITALS: BMI 29.5
[2017-11-16] MEDS: oxyCODONE/Acetaminophen 5 mg/325 mg Tablet PO PRN ×2 (04:21→08:21)
--- NOTE | 2017-11-16 04:31 | HP ---
CHIEF COMPLAINT: Right knee wound dehiscence. HISTORY OF PRESENT ILLNESS: Ms. Marr is an 82-year-old female who underwent right total knee art hroplasty 2 days ago. She was discharged to home today, but unfortunately on her way into her house, lost her balance and fell when trying to go up a step. She fell and landed on her right knee. She had immediate bleeding and pain. She was found to have a dehiscence of her wound. She was taken to the emergency department and Orthopedic Service was consulted. I am seeing the patient for evaluatio n of her wound. She has minimal pain at rest. She did not injure her upper extremities or other kne e. She did not have a syncopal episode. She was able to bear weight after the incident. She was us ing a walker. PAST MEDICAL HISTORY: Hypertension, gout, dyslipidemia, anxiety, GERD, chronic pain. PAST SURGICAL HISTORY: Most notable for a right total knee arthroplasty just 2 days ago. SOCIAL HISTORY: The patient denies tobacco, alcohol, or drug use. Her family is at the bedside. FAMILY MEDICAL HISTORY: Noncontributory. REVIEW OF SYSTEMS: Positive for mild right knee pain as per HPI. PHYSICAL EXAMINATION: VITAL SIGNS: Stable. GENERAL: The patient is alert and oriented, sitting upright, in no apparent distress. RESPIRATORY: Breathing comfortably. ABDOMEN: Soft, nontender, and nondistended. MUSCULOSKELETAL: The patient's right leg has a bandage overlying the knee which has some serosanguin eous drainage. The bandage is elevated revealing a dehiscence of the patient's anterior knee surgica l wound. The depth to this was not fully explored, but this does travel at least to the fascia level . There is no active arterial bleeding, but has been hematoma in the wound. No erythema or sign of infection. The patient is neurovascularly intact in the foot and ankle. IMAGES: X-rays of the knee are currently pending. IMPRESSION: Right total knee arthroplasty, status post fall with wound dehiscence. PLAN: At this point, the patient will need to go to the operating room. I will take her tonight for irrigation and debridement of her knee wound and repeat closure. She is aware of risk and benefits of surgery. Goal of surgery is to prevent wound complication or infection, especially in the setting of a recent total knee arthroplasty. The patient would like to go ahead and get this done. She ilia sahu remain n.p.o. She will have pain control. She will stay in the hospital overnight to work with ph ysical therapy and be sure that she is not going to fall again. She will have perioperative antibiot ics given for 24 hours.
[2017-11-16 04:54] LABS: #Eosinphils 0.1 thou/uL (0.0-0.7); #Lymphocytes 1.1 thou/uL (1.20-3.40); #Monocytes 0.9 thou/uL (0.11-0.59); #Neutrophils 6.1 thou/uL (1.40-6.50); %Eosinophils 0.8 % (0.0-10.0); %Lymphocytes 13.3 % (21.0-51.0); %Monocytes 11.4 % (0.0-10.0); %Neutrophils 74.5 % (42.0-75.0); Hemoglobin 12.1 g/dL (12.0-16.0); Mean Corpuscular HGB CONC 33.6 g/dL (32.0-36.0); Mean Corpuscular Hemoglobin 33.2 pg (27.0-31.0); Mean Corpuscular Volume 98.9 fl (81.0-99.0); Mean Platelet Volume 7.4 fL (7.4-10.4); Platelet Count 150 thou/uL (130-400); RBC Distribution Width 11.8 % (11.5-14.5); Red Blood Cell (RBC) Count 3.65 mill/uL (4.20-5.40); White Blood Cell (WBC) Count 8.2 thou/uL (4.8-10.8)
--- NOTE | 2017-11-16 04:54 | OP ---
DATE OPERATION: 11/15/2017 OPERATION: Irrigation and debridement of right knee wound dehiscence with closure of knee arthrotomy and wound. PREOPERATIVE DIAGNOSIS: Right knee full thickness dehiscence into knee joint. POSTOPERATIVE DIAGNOSIS: Right knee full thickness dehiscence into knee joint. COMPLICATIONS: None. ESTIMATED BLOOD LOSS: Minimal. SURGEON: Garett Porter M.D. ANESTHESIA: General. INDICATIONS: Ms. Marr is an 82-year-old female who underwent total knee arthroplasty 1 day ago. She fell when walking into her house today. She fell on her right knee and sustained a full thickne ss dehiscence with exposure of the underlying knee joint. She was indicated for irrigation and debri miguelito in the operating room and wound closure. Risks have been reviewed and do include infection, p ain, nerve or vascular injury, DVT, PE, wound dehiscence and other problems. She elected to proceed. DESCRIPTION OF PROCEDURE: Ms. Marr was identified in the preoperative holding area. Her correct extremity was marked. She was carried to the operating room. She was positioned supine. General a nesthesia was induced. A multidisciplinary timeout was performed. The right lower extremity was pre pped and draped in sterile fashion. We began the procedure with irrigation and debridement of the patient's knee. We opened the wound an d found that the arthrotomy was dehisced as well as the superficial layers. We removed multiple sutu re fragments and all foreign bodies. We inspected the total knee arthroplasty which appeared intact. I evacuated a copious hematoma. We then debrided any unhealthy appearing tissue. There was a rent in the capsular tissues over the anteromedial knee transversely. After we thoroughly irrigated we b anam closure of the knee. We closed the arthrotomy with a #2 Vicryl suture. This was in an interrup dannielle fashion. We also closed the traumatic transverse rent in the capsule. At this point, we worked more superficially closing the subcutaneous tissues and skin layers. 0 Vicryl, 2-0 Vicryl, marin a nd nylon sutures were used. The patient then had a sterile dressing applied. She was taken to the r ecovery room at this point in good condition.
[2017-11-16] MEDS: Clindamycin/D5W 900 MG in Premix Bag 1 BAG IVPB SCH ×2 (05:15→15:19)
--- NOTE | 2017-11-16 07:30 | RAD ---
RIGHT KNEE 2 VIEWS: Date: 11/15/17 HISTORY: Right knee replacement. COMPARISON: 11/19/15. FINDINGS: Total knee prosthesis is in place. No perihardware lucency. Soft tissue swelling and soft tissue gas are apparent with anterior skin marin. IMPRESSION: Right knee prosthesis is in good radiographic position. POS: [facility]
[2017-11-16] MEDS: Amlodipine 5 MG TAB PO SCH (08:03)
[2017-11-16] MEDS: hydrALAZINE 25 MG TAB PO SCH ×3 (08:04→20:29)
[2017-11-16] MEDS: Aspirin 81 mg Enteric Coated Tablet PO SCH ×2 (08:04→20:28)
[2017-11-16] MEDS ORDERED: Non-Formulary Item 1 EACH (Biotin/Keratin [Biotin Plus Keratin Tablet] 1 EACH) PO SCH (09:00)
[2017-11-16] MEDS ORDERED: TETANUS AND DIPHTHERIA TOX/PF 0.5 ML DISP.SYRIN IM SCH (09:00)
--- NOTE | 2017-11-16 11:51 | PQF ---
BRAULIO HAAS CHRISTOPHER E MD [id number] SURG A- [id number] CLINICAL DOCUMENTATION IMPROVEMENT CLARIFICATION FORM: ICD-10 Updated PLEASE DO AN ADDENDUM TO THE PROGRESS NOTE WITH ANY DOCUMENTATION UPDATES OR ADDITIONS AND CARRY THROUGH TO DC SUMMARY. THANK YOU. DATE: 11-16-17 ATTN: DR. NAVA Please exercise your independent, professional judgment in responding to the clarification form. Clinical indicators are provided on the bottom of this form for your review Please check appropriate box(s): [ ] Excisional Debridement: Depth / layer: (deepest layer of debridement): [ ] Skin[ ] SubQ Tissue [ x ] Fascia [ ] Muscle [ ] Tendon [ ] Bone [ ] Non-excisional Debridement: (Removal by flushing, brushing, chemical, or washing) Depth / layer: (deepest layer of debridement): [ ] Skin[ ] Subcutaneous [ ] Fascia [ ] Muscle [ ] Tendon [ ] Bone [ ] Incision and Drainage only (No Debridement): Depth:[ ] Skin [ ] Subcutaneous [ ] Fascia [ ] Muscle [ ] Tendon [ ] Bone [ ] Other procedure diagnosis [ ] Unable to determine For continuity of documentation, please document condition throughout progress notes and discharge summary. Thank You. CLINICAL INDICATORS - SIGNS / SYMPTOMS / LABS OP NOTE: Irrigation and debridement of right knee wound dehiscence w/ closure of knee arthrotomy and wound. Debrided any unhealthy appearing tissue. RISK FACTORS H&P: S/P FALL ON RIGHT TOTAL KNEE ARTHROPASTY TREATMENTS: OP NOTE: Irrigation and debridement of right knee wound dehiscence w/ closure of knee arthrotomy and wound. THANK YOU, SMILEY (This form is maintained as a part of the permanent medical record) 2014 [employer]. All Rights Reserved Smiley Knight RN, [email or web address] [facility]
[2017-11-16] MEDS ORDERED: Allopurinol 300 MG TAB PO SCH (21:00)
[2017-11-16] MEDS ORDERED: Pravastatin Sodium 20 MG TAB PO SCH (21:00)
[2017-11-16] MEDS ORDERED: MAG PO SCH (21:00)
[2017-11-16] MEDS ORDERED: CAL PHOS PO SCH (21:00)
[2017-11-16] MEDS ORDERED: POT CHLORIDE PO SCH (21:00)
[2017-11-17] MEDS: oxyCODONE/Acetaminophen 5 mg/325 mg Tablet PO PRN ×2 (08:38→11:58)
[2017-11-17] MEDS: Amlodipine 5 MG TAB PO SCH (08:39)
[2017-11-17] MEDS: hydrALAZINE 25 MG TAB PO SCH (08:39)
[2017-11-17] MEDS: Aspirin 81 mg Enteric Coated Tablet PO SCH (08:39)
[2017-11-17 12:15] VITALS: BP 108/69; TEMP 98.4
[2017-11-17] MEDS ORDERED: Polyethylene Glycol 3350 17 GM Packet PO SCH (13:45)
[2017-11-18] MEDS ORDERED: Polyethylene Glycol 3350 17 GM Packet PO SCH (09:00)
== END 2017-11-17 14:58 ==
LOC: ERS 20:22 → SDC/OP 21:51 → INTOOBSV 23:29 → SURG A 23:29
PROVIDERS: ADMIT Orthopaedic Surgery; ATTEND Orthopaedic Surgery
PROC: 0JQN0ZZ Repair Right Lower Leg Subcutaneous Tissue and Fascia, Open Approach (ICD-10-PCS; principal; 2017-11-15)
DX: T81.31XA Disruption of external operation (surgical) wound, not elsewhere classified, initial encounter (principal); I10 Essential (primary) hypertension; M10.9 Gout, unspecified; E78.5 Hyperlipidemia, unspecified; F41.9 Anxiety disorder, unspecified; K21.9 Gastro-esophageal reflux disease without esophagitis; G89.29 Other chronic pain; R35.0 Frequency of micturition; M41.9 Scoliosis, unspecified; M19.90 Unspecified osteoarthritis, unspecified site; W19.XXXA Unspecified fall, initial encounter; Y93.01 Activity, walking, marching and hiking; Y92.009 Unspecified place in unspecified non-institutional (private) residence as the place of occurrence of the external cause; Z79.82 Long term (current) use of aspirin; Z79.899 Other long term (current) drug therapy; Z88.1 Allergy status to other antibiotic agents; Z88.0 Allergy status to penicillin; Z88.5 Allergy status to narcotic agent; Z98.51 Tubal ligation status; Z96.653 Presence of artificial knee joint, bilateral; Z90.710 Acquired absence of both cervix and uterus; Z90.89 Acquired absence of other organs; Z98.890 Other specified postprocedural states; Z87.442 Personal history of urinary calculi
CPT/HCPCS: 13160; 73560 ×2; 82962 ×2; 85025; 85027; 86850; 86900; 86901; 90471; 90715; 96360; 96361; 96374; 96376; 97110 ×3; 97116 ×4; 97139 ×3; 97150; 97530; 97535; 99285; C1713; C1776; G0378; G8978 ×2; G8979 ×2; G8987; G8988; 36415; 36416; J1100; J1885; J1956; J2001; J2250; J2405; J2704; J2795; J3010; J3370; J3490

== ENCOUNTER 2018-09-19 14:46 | Outpatient (CLI) | payer MEDICARE ==
[2018-09-19 16:04] LABS: Mean Corpuscular HGB CONC 34.2 g/dL (32.0-36.0); Mean Corpuscular Hemoglobin 32.9 pg (27.0-31.0); Mean Corpuscular Volume 96.1 fL (78.0-98.0); Mean Platelet Volume 7.8 fL (7.4-10.4); Platelet Count 215 thou/uL (130-400); RBC Distribution Width 13.3 % (11.5-14.5); Red Blood Cell (RBC) Count 4.57 mill/uL (4.20-5.40)
[2018-09-19 16:12] LABS: INR-International Normal Ratio 0.9; PTT 27.4 SEC (22.9-36.1); Prothrombin Time 12.5 SEC (12.0-14.7)
[2018-09-19 16:31] LABS: Anion Gap 11 mmol/L (10-20); BUN (Urea Nitrogen) 13 mg/dL (9.8-20.1); Calc. Creatinine Clearance 0 mL/min (70-130); Calcium 9.5 mg/dL (7.8-10.44); Carbon Dioxide 26 mmol/L (23-31); Chloride 107 mmol/L (98-107); Estimated GFR-MDRD 51; Glucose 87 mg/dL (83-110); Potassium 3.5 mmol/L (3.5-5.1); Sodium 140 mmol/L (136-145)
--- NOTE | 2018-09-20 07:31 | EKG ---
Test Reason : Blood Pressure : / mmHG Vent. Rate : 054 BPM Atrial Rate : 054 BPM P-R Int : 192 ms QRS Dur : 090 ms QT Int : 438 ms P-R-T Axes : 026 -17 014 degrees QTc Int : 415 ms Sinus bradycardia Voltage criteria for left ventricular hypertrophy Abnormal ECG When compared with ECG of 10-NOV-2017 11:37, No significant change was found Confirmed by DR. Rosalia VINES ([id number]) on 09/20/2018 7:30:36 AM Referred By: NIKKY Confirmed By:DR. Rosalia VINES
== END 2018-09-19 14:47 | disposition home or self-care (01) ==
LOC: LABBT 14:46
PROVIDERS: ATTEND Urology
DX: Z01.818 Encounter for other preprocedural examination (principal); N20.1 Calculus of ureter
CPT/HCPCS: 80048; 81001; 85027; 85610; 85730; 87077; 87086; 87186; 93005; 93010

== ENCOUNTER 2018-10-03 08:30 | Day surgery (SDC) | payer MEDICARE ==
[2018-09-19 15:03] VITALS: BMI 29.5
[2018-10-03] MEDS ORDERED: Fentanyl 250 MCG/5 ML VIAL ONE (11:00)
[2018-10-03] MEDS ORDERED: Levofloxacin 500 mg/D5W 100 ml Premix Bag ONE (11:07)
[2018-10-03] MEDS ORDERED: Iothalamate Meglumine 60% 50 ML VIAL FS ONE (11:48)
[2018-10-03] MEDS ORDERED: Phenazopyridine HCl 97.5 MG TABLET ONE (12:54)
[2018-10-03] MEDS ORDERED: Oxybutynin 5 MG TAB ONE (12:55)
--- NOTE | 2018-10-03 13:08 | RAD ---
SUPINE ABDOMEN: Date: 10/03/18 INDICATION: Preoperative evaluation. Comparison made to abdominal film of 04/24/[address] of 09/11/18. Previous CT revealed a 4-5 mm calculus in the distal left ureter. FINDINGS: There is a new calcific density in the peripheral left pelvis when compared to the prior supine exami nation of 04/24/18, which probably corresponds to the distal left ureteral calculus. There are vascul ar calcifications in the peripheral pelvis which appear stable. There is a linear calcification to th e left of the L2-3 disc space, which is stable from the prior plain film. Bowel gas pattern unremarkable. IMPRESSION: There is evidence of a new calcification in the peripheral left pelvis which may correspond to the le ft ureteral calculus noted on CT of 09/11/18. This is not confirmed and further evaluation with IVP o r CT may be of benefit for confirmation. POS: [facility]
[2018-10-03] MEDS ORDERED: Rocuronium Bromide 10 MG/ML (10ML VIAL) ONE (13:25)
[2018-10-03] MEDS ORDERED: Ondansetron PF 4 MG/2 ML Vial ONE (13:25)
[2018-10-03] MEDS ORDERED: Naloxone HCl 0.4 mg/ml Vial ONE (13:25)
[2018-10-03] MEDS ORDERED: PROPOFOL 200 MG/20 ML VIAL ONE (13:25)
[2018-10-03] MEDS ORDERED: Glycopyrrolate 0.2 MG/ML 5 ML SYRINGE ONE (13:25)
[2018-10-03] MEDS ORDERED: Dexamethasone 20 MG/5 ML VIAL ONE (13:25)
[2018-10-03] MEDS ORDERED: Sodium Chloride 0.9% 10 ML ONE (14:25)
[2018-10-03] MEDS ORDERED: Promethazine HCl 25 MG/ML VIAL ONE (14:25)
--- NOTE | 2018-10-03 14:27 | RAD ---
RETROGRADE URETEROSCOPY WITH INTRAOPERATIVE FLUOROSCOPY: HISTORY: Ureteral stone. FINDINGS: Intraoperative fluoroscopy was provided for retrograde study, as performed by Dr. Mcdowell. Spot fluoroscopic image show catheterization and opacification of a nondilated ureter. Linear arrangement of small circular lucencies at the level of the proximal ureter likely represent air bubbles. Final image shows a double pigtail stent overlying the course of the left ureter. POS: [facility]
--- NOTE | 2018-10-03 19:21 | OP ---
DATE OF PROCEDURE: 10/03/2018 PREOPERATIVE DIAGNOSES: 1. An 83-year-old female with history of recurrent kidney stone, left distal ureteral stone with non-progression measuring 5 mm. 2. Left mid pole nonobstructing renal calculi. 3. History of Escherichia coli urinary tract infection treated and resolved with repeat urine culture negative. POSTOPERATIVE DIAGNOSES: 1. An 83-year-old female with history of recurrent kidney stone, left distal ureteral stone with non-progression measuring 5 mm. 2. Left mid pole nonobstructing renal calculi. 3. History of Escherichia coli urinary tract infection treated and resolved with repeat urine culture negative. PROCEDURE PERFORMED: Cystoscopy, left retrograde pyelogram, 6 x 26 double-J ureteral stent placement, balloon dilatation of left distal ureter, rigid ureteroscopy, laser lithotripsy of ureteral calculi, basket extraction of fragments, flexible pyeloscopy, basket extraction of left mid pole stone. ANESTHESIA: General. COMPLICATIONS: None apparent. DISPOSITION: To recovery room in stable condition. INDICATIONS FOR PROCEDURE AND HISTORY: Ms. Marr is a pleasant 83-year-old female with history of recurrent kidney stones. She presented to the emergency room on September 11 demonstrating left distal ureteral calculi measuring 5 mm nonobstructing left mid pole renal calculi. She was also found to have E coli UTI, which we treated, repeat urine culture negative. As there is non-progression of her stone nidus, she presents today for ureteroscopy and laser lithotripsy. She desired to have a left mid pole stone treated as well. Risks and complications of the procedure were reviewed, including, but not limited to, bleeding, pain, infection, injury to adjacent organs, urosepsis, stricture formation, possible secondary procedure, PE, DVT, PR, CVA, was reviewed with the patient in detail. All questions were answered to her satisfaction and she desired to proceed. DESCRIPTION OF PROCEDURE: After an informed consent was signed, the patient was taken to the operating room, placed in a dorsal lithotomy position with the genital area prepped and draped in the usual surgical sterile fashion. A 21-Angolan cystoscope was utilized for cystoscopy. She did have a grade 2 cystocele, which required some manual reduction to visualize the left UO. The ureteral orifices at normal anatomical location. There was no evidence of bladder stones, bladder tumors. An open-ended catheter was utilized to intubate the UO and a 0.35 Sensor wire was passed to the level of left upper pole. We then subsequently passed a [employer] 4 cm 12-Angolan balloon dilator of the left distal ureter just distal to the level of the stone, seen on KUB. We balloon dilated her distal intramural ureter. Pressure was held at 18 atmosphere for 1 to 2 minutes. We subsequently was able to pass the rigid ureteroscope with ease. There was some inflammatory changes at the level of the stone consistent with persistent stone nidus. The stone was easily visualized. Using 200 micron laser fiber, I laser lithotripsy the stone into couple of fragments. They were basket extracted atraumatically. She did have proximal dilation due to the ureteral stone. I was able to pass a 10-Angolan dual-lumen access sheath without significant issues to the level of the proximal ureter. Retrograde pyelogram confirmed proper placement. A 0.35 Super Stiff wire was then placed into the left upper pole. The dual-lumen access sheath was then removed and we passed an 11/13-Angolan by 28 cm navigator to the level of the proximal ureter. We advanced the flexible ureteroscope, disposable digital scope all the way up to the level of the upper pole over the working wire. With the safety wire secured, we then removed the working wire. Pyeloscopy demonstrated the left mid pole stone. We were able to basket extract this atraumatically. As she had dilated ureter from a long-standing left distal ureteral stone, I was able to retrieve the stone. The stone was able to be engaged to the level of the sheath. With the sheath intact, retrieved the stone atraumatically. Repeat retrograde pyelogram failed to demonstrate any evidence of ureteral extravasation of contrast. At this time, a 6 x 26 double-J ureteral stent was passed. All wire was then subsequently removed. All instruments and sponges accounted for, and the patient tolerated the procedure well and transported to the recovery room in stable condition. As there was endoscopic clearance, she will follow up with me next for cysto stent pull under local. She is discharged with Olympia 5/325 #30 p.r.n., AZO p.r.n., VESIcare 5 mg one p.o. daily #14, Colace p.r.n. She will continue her ciprofloxacin as she has history of UTI until stent is removed next week. Job ID: [id number] [facility]
== END 2018-10-03 14:40 | disposition home or self-care (01) ==
LOC: SDC 08:30
PROVIDERS: ATTEND Urology
PROC: 0TF78ZZ Fragmentation in Left Ureter, Via Natural or Artificial Opening Endoscopic (ICD-10-PCS; principal; 2018-10-03)
PROC: 0T778DZ Dilation of Left Ureter with Intraluminal Device, Via Natural or Artificial Opening Endoscopic (ICD-10-PCS; 2018-10-03)
PROC: 0TC18ZZ Extirpation of Matter from Left Kidney, Via Natural or Artificial Opening Endoscopic (ICD-10-PCS; 2018-10-03)
DX: N20.2 Calculus of kidney with calculus of ureter (principal); N81.10 Cystocele, unspecified; F43.23 Adjustment disorder with mixed anxiety and depressed mood; D35.02 Benign neoplasm of left adrenal gland; I10 Essential (primary) hypertension; E78.5 Hyperlipidemia, unspecified; K21.9 Gastro-esophageal reflux disease without esophagitis; M19.90 Unspecified osteoarthritis, unspecified site; M10.9 Gout, unspecified; G89.29 Other chronic pain; M54.9 Dorsalgia, unspecified; Z79.899 Other long term (current) drug therapy; Z88.0 Allergy status to penicillin; Z88.1 Allergy status to other antibiotic agents; Z88.5 Allergy status to narcotic agent; Z88.8 Allergy status to other drugs, medicaments and biological substances
CPT/HCPCS: 74018; 74420; 82365; 88300; C1758; C1769; J1956; J2550; J3010; Q9961

== ENCOUNTER 2019-04-15 09:58 | Outpatient (CLI) | payer MEDICARE ==
--- NOTE | 2019-04-15 11:20 | RAD ---
KUB: HISTORY: Kidney stone COMPARISON: 1. 28/11/2018 FINDINGS: There are some aortic vascular calcifications and some left iliac vascular calcifications. No overt G U calculus is demonstrated. Lumbar spine levoscoliosis with spondylosis. No bowel obstruction. IMPRESSION: No overt calculus.
--- NOTE | 2019-04-15 11:52 | ULT ---
Exam: Bilateral renal ultrasound complete: HISTORY: Kidney stones COMPARISON: 04/24/2018 FINDINGS: Right kidney: 9.3 x 3.8 x 3.8 cm Left kidney: 9.1 x 3.6 x 3.5 cm No renal hydronephrosis. No evidence for abnormal perinephric process. No solid or cystic renal mass. Unremarkable appearing bladder. No evidence for renal calculus. IMPRESSION: Unremarkable bilateral renal ultrasound. No hydronephrosis or perinephric process.
== END 2019-04-15 09:59 | disposition home or self-care (01) ==
LOC: BICULT 09:58
PROVIDERS: ATTEND Urology
DX: N20.0 Calculus of kidney (principal); N18.9 Chronic kidney disease, unspecified; M10.9 Gout, unspecified
CPT/HCPCS: 36415; 74018; 76770; 80048; 81001; 87077; 87086; 87186

== ENCOUNTER 2021-06-16 09:47 | Outpatient (CLI) | payer MEDICARE ==
[2021-06-16] MEDS ORDERED: Iopamidol-370 76% 500 ML 1 ML ONE (11:04)
== END 2021-06-16 09:48 | disposition home or self-care (01) ==
LOC: BICCT 09:47
PROVIDERS: ATTEND Urology
DX: N20.0 Calculus of kidney (principal); R31.29 Other microscopic hematuria; K76.89 Other specified diseases of liver; N28.1 Cyst of kidney, acquired; D35.02 Benign neoplasm of left adrenal gland
CPT/HCPCS: 74178; Q9967

== ENCOUNTER 2021-11-03 12:34 | Outpatient (CLI) | payer MEDICARE | END 2021-11-03 12:35 | disposition home or self-care (01) | LOC: MRI 12:34 | PROVIDERS: ATTEND Orthopaedic Surgery | DX: M47.22 Other spondylosis with radiculopathy, cervical region (principal); M47.23 Other spondylosis with radiculopathy, cervicothoracic region; M89.9 Disorder of bone, unspecified | CPT/HCPCS: 72141 ==

== ENCOUNTER 2023-10-06 10:53 | Outpatient (CLI) | payer MEDICARE ==
[2023-10-06 13:51] LABS: Hematocrit 46.8 % (34.9-44.5); Hemoglobin 15.4 g/dL (12.0-15.5); Mean Corpuscular HGB CONC 32.9 g/dL (32.0-36.0); Mean Corpuscular Hemoglobin 31.9 pg (27.0-33.0); Mean Corpuscular Volume 96.9 fl (81.6-98.3); Mean Platelet Volume 10.8 fl (7.4-10.4); Platelet Count 216 10x3/uL (150-450); RBC Distribution Width 12.8 % (11.5-14.5); Red Blood Cell (RBC) Count 4.83 10x6/uL (3.90-5.03); White Blood Cell (WBC) Count 6.6 10x3/uL (3.5-10.5)
[2023-10-06 14:12] LABS: PTT 27.9 sec (22.0-33.0); Prothrombin Time 10.4 sec (9.5-12.1)
[2023-10-06 14:27] LABS: Anion Gap 12 mmol/L (10-20); BUN (Urea Nitrogen) 26 mg/dL (9.8-20.1); Calc. Creatinine Clearance 0 mL/min (70-130); Calcium 9.5 mg/dL (7.8-10.44); Carbon Dioxide 28 mmol/L (23-31); Chloride 107 mmol/L (98-107); Estimated GFR 48; Glucose 87 mg/dL (83-110); Potassium 4.5 mmol/L (3.5-5.1); Sodium 142 mmol/L (136-145)
== END 2023-10-06 10:54 | disposition home or self-care (01) ==
LOC: LABBT 10:53
PROVIDERS: ATTEND Surgery
DX: Z01.818 Encounter for other preprocedural examination (principal); M54.12 Radiculopathy, cervical region; M48.02 Spinal stenosis, cervical region
CPT/HCPCS: 80048; 85027; 85610; 85730; 93005; 93010

== ENCOUNTER 2024-03-27 14:29 | Outpatient (CLI) | payer MEDICARE | END 2024-03-27 14:30 | disposition home or self-care (01) | LOC: RAD 14:29 | PROVIDERS: ATTEND Internal Medicine | DX: J98.4 Other disorders of lung (principal); R06.00 Dyspnea, unspecified | CPT/HCPCS: 71046 ==

== ENCOUNTER 2024-07-03 16:50 | Inpatient (IN) | payer MEDICARE ==
[~2024-07-03 16:50] MED LIST changes: +Iopamidol 370 76% 100 ML VIAL ONE; -Lidocaine 1% PF 5 ML VIAL ONE; -Propofol 200 MG/20 ML VIAL ONE; -ePHEDrine/0.9% NaCl/PF SYRINGE 50 mg/10 ml ONE
[2024-07-03 18:04] LABS: #Basophils 0.03 10x3/uL (0.0-0.2); %Basophils 0.5 % (0.0-1.0); %Eosinophils 3.9 % (0.0-10.0); %Lymphocytes 33.3 % (21.0-51.0); %Monocytes 10.8 % (0.0-10.0); %Neutrophils 51.2 % (42.0-75.0); Hematocrit 45.5 % (36.0-47.0); Mean Corpuscular Hemoglobin 31.7 pg (27.0-31.0); Mean Corpuscular Volume 96.2 fL (78.0-98.0); Mean Platelet Volume 10.3 fL (7.4-10.4); Platelet Count 203 10x3/uL (130-400); RBC Distribution Width 12.7 % (11.5-14.5); Red Blood Cell (RBC) Count 4.73 mill/uL (4.20-5.40)
[2024-07-03 18:09] LABS: Bacteria/HPF 2+ HPF (None Seen); Bilirubin Negative (Negative); Blood, Urine Negative (Negative); CAUTI Indications for Culture Dysuria,urgency,freq; Clarity Clear (Clear); Glucose, Urine (Dipstick) Normal (Negative); Ketone, Urine Negative (Negative); Leukocyte 250 Leu/uL (Negative); Nitrite Negative (Negative); Protein, Urine (Dipstick) Negative (Neg-Trace); RBC/HPF 0-3 HPF (0-3); Specific Gravity, Urine 1.007 (1.002-1.036); Squamous Epithelial 0-3 HPF (0-3); Urobilinogen Normal mg/dL (Less than 2); WBC/HPF 21-50 HPF (0-3)
[2024-07-03 18:12] LABS: Urine Culture Reflex Yes Yes
[2024-07-03 18:19] LABS: ALT (SGPT) 12 U/L (8-55); AST (SGOT) 12 U/L (5-34); Albumin 3.8 g/dL (3.4-4.8); Alkaline Phosphatase 73 U/L (40-110); Anion Gap 9 mmol/L (10-20); BUN (Urea Nitrogen) 15 mg/dL (9.8-20.1); Bilirubin, Total 1.2 mg/dL (0.2-1.2); Calc. Creatinine Clearance 0 mL/min (70-130); Calcium 9.8 mg/dL (7.8-10.44); Carbon Dioxide 28 mmol/L (23-31); Chloride 108 mmol/L (98-107); Estimated GFR 50; Globulin 2.7 g/dL (2.4-3.5); Glucose 81 mg/dL (83-110); Potassium 4.4 mmol/L (3.5-5.1); Protein, Total 6.5 g/dL (5.8-8.1); Sodium 141 mmol/L (136-145)
[2024-07-03 18:23] LABS: Troponin I Less than 0.010 ng/mL (< 0.028)
[2024-07-03] MEDS ORDERED: Aspirin Chewable 81 MG TAB ONE (23:02)
[2024-07-03] MEDS ORDERED: Nitroglycerin 0.4 MG TAB 1 EACH ONE (23:02)
[2024-07-03] MEDS ORDERED: hydrALAZINE 20 MG/ML VIAL ONE (23:18)
[2024-07-03] MEDS ORDERED: Ondansetron ODT 4 MG TAB PO PRN (23:27)
[2024-07-03] MEDS ORDERED: Ondansetron PF 4 MG/2 ML Vial IVP PRN (23:27)
[2024-07-03] MEDS ORDERED: hydrALAZINE 20 MG/ML VIAL SLOW IVP PRN (23:31)
[2024-07-04 07:17] LABS: #Basophils 0.03 10x3/uL (0.0-0.2); %Basophils 0.4 % (0.0-1.0); %Eosinophils 3.9 % (0.0-10.0); %Lymphocytes 26.5 % (21.0-51.0); %Neutrophils 56.5 % (42.0-75.0); Hematocrit 44.9 % (36.0-47.0); Mean Corpuscular HGB CONC 33.4 g/dL (32.0-36.0); Mean Corpuscular Hemoglobin 31.2 pg (27.0-31.0); Mean Corpuscular Volume 93.3 fL (78.0-98.0); Mean Platelet Volume 10.4 fL (7.4-10.4); Platelet Count 197 10x3/uL (130-400); Red Blood Cell (RBC) Count 4.81 mill/uL (4.20-5.40)
[2024-07-04 07:32] LABS: ALT (SGPT) 12 U/L (8-55); AST (SGOT) 12 U/L (5-34); Albumin 3.5 g/dL (3.4-4.8); Alkaline Phosphatase 69 U/L (40-110); Anion Gap 11 mmol/L (10-20); BUN (Urea Nitrogen) 15 mg/dL (9.8-20.1); Bilirubin, Total 0.8 mg/dL (0.2-1.2); Calc. Creatinine Clearance 48 mL/min (70-130); Calcium 9.3 mg/dL (7.8-10.44); Carbon Dioxide 23 mmol/L (23-31); Cardiac Risk 2.8 (Less than 4.5); Chloride 109 mmol/L (98-107); Cholesterol 128 mg/dl (< 200 Desired); Estimated GFR 60; Globulin 2.6 g/dL (2.4-3.5); Glucose 113 mg/dL (83-110); HDL Cholesterol 46 mg/dL (>60 Neg Risk); LDL Cholesterol, Calculated 56 mg/dL; Potassium 3.6 mmol/L (3.5-5.1); Protein, Total 6.1 g/dL (5.8-8.1); Sodium 139 mmol/L (136-145); Triglycerides 128 mg/dL (Less than 150)
[2024-07-04] MEDS ORDERED: Acetaminophen 325 MG TAB ONE (08:39)
[2024-07-04] MEDS ORDERED: Sulfameth/Trimethoprim DS 800-160mg TAB ONE (08:41)
[2024-07-04] MEDS ORDERED: Losartan 25 MG TAB ONE (08:42)
[2024-07-04] MEDS ORDERED: hydrALAZINE 25 MG TAB ONE (08:42)
[2024-07-04] MEDS ORDERED: Enoxaparin 40 MG (0.4 mL) SYRINGE ONE (08:42)
[2024-07-04] MEDS ORDERED: Potassium Chloride 20 MEQ TAB ONE (08:42)
[2024-07-04] MEDS: Enoxaparin 40 MG (0.4 mL) SYRINGE SC SCH (08:45)
[2024-07-04] MEDS: Potassium Chloride 20 MEQ TAB PO SCH (08:46)
[2024-07-04] MEDS: Acetaminophen 325 MG TAB PO PRN (08:46)
[2024-07-04] MEDS: hydrALAZINE 25 MG TAB PO SCH (08:46)
[2024-07-04] MEDS: Sulfameth/Trimethoprim DS 800-160mg TAB PO SCH (08:46)
[2024-07-04] MEDS: Losartan 25 MG TAB PO SCH (08:46)
[2024-07-04 19:23] VITALS: BMI 27.1
[2024-07-04] MEDS: Simvastatin 10 MG TAB PO SCH (20:15)
[2024-07-04] MEDS ORDERED: Atorvastatin Calcium 40 MG TAB PO SCH (21:00)
[2024-07-05 05:36] LABS: Anion Gap 11 mmol/L (10-20); BUN (Urea Nitrogen) 16 mg/dL (9.8-20.1); Calc. Creatinine Clearance 38 mL/min (70-130); Calcium 8.9 mg/dL (7.8-10.44); Carbon Dioxide 25 mmol/L (23-31); Chloride 108 mmol/L (98-107); Estimated GFR 45; Glucose 91 mg/dL (83-110); Magnesium 2.2 mg/dL (1.6-2.6); Potassium 3.8 mmol/L (3.5-5.1); Sodium 140 mmol/L (136-145)
[2024-07-05 05:38] LABS: Hemoglobin A1c 5.2 % (4.0-6.0)
[2024-07-05] MEDS: Aspirin Chewable 81 MG TAB PO SCH (08:17)
[2024-07-05 10:50] VITALS: BMI 27.1
[2024-07-05] MEDS: Losartan 25 MG TAB PO SCH (11:29)
[2024-07-06 05:08] LABS: Hematocrit 43.9 % (36.0-47.0); Hemoglobin 14.5 g/dL (12.0-16.0); Mean Platelet Volume 10.2 fL (7.4-10.4); Platelet Count 176 10x3/uL (130-400); RBC Distribution Width 13.2 % (11.5-14.5); Red Blood Cell (RBC) Count 4.67 mill/uL (4.20-5.40)
[2024-07-06 05:28] LABS: Anion Gap 9 mmol/L (10-20); BUN (Urea Nitrogen) 15 mg/dL (9.8-20.1); Calc. Creatinine Clearance 30 mL/min (70-130); Calcium 8.8 mg/dL (7.8-10.44); Carbon Dioxide 25 mmol/L (23-31); Chloride 108 mmol/L (98-107); Estimated GFR 34; Glucose 93 mg/dL (83-110); Magnesium 2.2 mg/dL (1.6-2.6); Potassium 4.2 mmol/L (3.5-5.1); Sodium 138 mmol/L (136-145)
[2024-07-06] MEDS ORDERED: Losartan 25 MG TAB PO SCH (09:00)
[2024-07-06] MEDS: Sodium Chloride 0.9% 1,000 ML IV SCH (09:50)
[2024-07-06] MEDS: Enoxaparin 30 MG (0.3 mL) SYRINGE SC SCH (09:51)
[2024-07-06] MEDS: NIFEdipine XL 30 MG ER.TAB PO SCH (11:10)
[2024-07-06] MEDS: Fosfomycin 3 GM/Packet PO SCH (13:56)
[2024-07-06] MEDS: Spironolactone 25 MG TAB PO SCH (19:42)
[2024-07-07 05:25] LABS: Anion Gap 10 mmol/L (10-20); BUN (Urea Nitrogen) 14 mg/dL (9.8-20.1); Calc. Creatinine Clearance 33 mL/min (70-130); Calcium 8.6 mg/dL (7.8-10.44); Carbon Dioxide 22 mmol/L (23-31); Chloride 110 mmol/L (98-107); Estimated GFR 37; Glucose 93 mg/dL (83-110); Potassium 3.9 mmol/L (3.5-5.1); Sodium 138 mmol/L (136-145)
[2024-07-07] MEDS: Spironolactone 25 MG TAB PO SCH (09:03)
[2024-07-07] MEDS: NIFEdipine XL 30 MG ER.TAB PO SCH ×2 (09:04→11:48)
[2024-07-07] MEDS: FLU (Fluad Triv) TS24-25 (65UP)/MF59C/PF 45 MCG/0.5 ML Syringe IM ONE (11:53)
[2024-07-07 16:05] VITALS: BP 139/83; TEMP 98
== END 2024-07-07 16:50 | disposition home or self-care (01) | DRG 305 ==
LOC: ERS 16:50 → ERHOLD 23:31 → 2NO 07-04 17:18
PROVIDERS: ADMIT Internal Medicine; ATTEND Internal Medicine
DX: I16.1 Hypertensive emergency (principal); N39.0 Urinary tract infection, site not specified; N17.9 Acute kidney failure, unspecified; E78.5 Hyperlipidemia, unspecified; K52.89 Other specified noninfective gastroenteritis and colitis; D35.02 Benign neoplasm of left adrenal gland; G89.29 Other chronic pain; M54.50 Low back pain, unspecified; F32.A Depression, unspecified; Z96.652 Presence of left artificial knee joint; I12.9 Hypertensive chronic kidney disease with stage 1 through stage 4 chronic kidney disease, or unspecified chronic kidney disease; N18.9 Chronic kidney disease, unspecified; Z88.5 Allergy status to narcotic agent; Z88.8 Allergy status to other drugs, medicaments and biological substances; Z88.0 Allergy status to penicillin; Z88.1 Allergy status to other antibiotic agents; Z85.828 Personal history of other malignant neoplasm of skin; Z79.899 Other long term (current) drug therapy; Z98.51 Tubal ligation status; Z90.710 Acquired absence of both cervix and uterus
CPT/HCPCS: 36415; 70450; 70551; 71046; 71275; 74174; 76770; 80048; 80053; 80061; 81001; 83036; 83735; 84443; 84484; 85025; 85027; 87077; 87086; 87186; 93005; 93306; 93880; 96374; J0360; J1650; J7030; Q9967

== ENCOUNTER 2024-08-18 13:40 | Emergency (ER) | payer MEDICARE ==
[2024-08-18 14:11] LABS: #Basophils 0.03 10x3/uL (0.0-0.2); %Basophils 0.3 % (0.0-1.0); %Eosinophils 0.4 % (0.0-10.0); %Lymphocytes 15.6 % (21.0-51.0); %Neutrophils 70.5 % (42.0-75.0); Hematocrit 40.9 % (36.0-47.0); Mean Corpuscular HGB CONC 34.2 g/dL (32.0-36.0); Mean Corpuscular Hemoglobin 31.5 pg (27.0-31.0); Mean Corpuscular Volume 92.1 fL (78.0-98.0); Mean Platelet Volume 9.6 fL (7.4-10.4); Platelet Count 247 10x3/uL (130-400); RBC Distribution Width 12.5 % (11.5-14.5); Red Blood Cell (RBC) Count 4.44 mill/uL (4.20-5.40)
[2024-08-18 14:42] LABS: ALT (SGPT) 9 U/L (8-55); AST (SGOT) 13 U/L (5-34); Albumin 3.2 g/dL (3.4-4.8); Alkaline Phosphatase 63 U/L (40-110); Anion Gap 16 mmol/L (10-20); BUN (Urea Nitrogen) 19 mg/dL (9.8-20.1); Bilirubin, Total 0.9 mg/dL (0.2-1.2); Calc. Creatinine Clearance 0 mL/min (70-130); Calcium 9.5 mg/dL (7.8-10.44); Carbon Dioxide 26 mmol/L (23-31); Chloride 99 mmol/L (98-107); Estimated GFR 45; Globulin 3.7 g/dL (2.4-3.5); Glucose 110 mg/dL (83-110); Potassium 2.7 mmol/L (3.5-5.1); Protein, Total 6.9 g/dL (5.8-8.1); Sodium 138 mmol/L (136-145)
[2024-08-18 14:47] LABS: Troponin I 0.021 ng/mL (< 0.028)
[2024-08-18] MEDS ORDERED: Potassium Chloride 20 MEQ TAB ONE (15:03)
[2024-08-18 15:23] LABS: Bacteria/HPF 4+ HPF (None Seen); Bilirubin Negative (Negative); Blood, Urine Negative (Negative); CAUTI Indications for Culture Acute Hematuria; Clarity Turbid (Clear); Glucose, Urine (Dipstick) Normal (Negative); Ketone, Urine 10 mg/dL (Negative); Leukocyte 500 Leu/uL (Negative); Nitrite Negative (Negative); Protein, Urine (Dipstick) 50 mg/dL (Neg-Trace); RBC/HPF 0-3 HPF (0-3); Specific Gravity, Urine 1.019 (1.002-1.036); Squamous Epithelial 0-3 HPF (0-3); Urobilinogen Normal mg/dL (Less than 2); WBC/HPF Greater than 50 HPF (0-3)
[2024-08-18 15:32] LABS: Urine Culture Reflex Yes Yes
[2024-08-18] MEDS ORDERED: cefTRIAXone (ROCEPHIN) 1 GM VIAL ONE (16:01)
[2024-08-18] MEDS ORDERED: Lidocaine 1% MPF 2 ML VIAL ONE (16:01)
== END 2024-08-18 17:36 | disposition home or self-care (01) ==
LOC: ERS 13:40
DX: J18.9 Pneumonia, unspecified organism (principal); N39.0 Urinary tract infection, site not specified; R44.3 Hallucinations, unspecified; I13.0 Hypertensive heart and chronic kidney disease with heart failure and stage 1 through stage 4 chronic kidney disease, or unspecified chronic kidney disease; N18.9 Chronic kidney disease, unspecified; I50.9 Heart failure, unspecified; E78.5 Hyperlipidemia, unspecified; Z55.6 Problems related to health literacy; Z79.899 Other long term (current) drug therapy
CPT/HCPCS: 36415; 70450; 71045; 71250; 80053; 81001; 83880; 84484; 85025; 87077; 87086; 87186; 87428; 93005; J0696

== ENCOUNTER 2024-08-19 01:35 | Inpatient (IN) | payer MEDICARE ==
[2024-08-19] MEDS ORDERED: Azithromycin 500 MG VIAL ONE (03:20)
[2024-08-19 03:29] LABS: #Basophils 0.03 10x3/uL (0.0-0.2); %Basophils 0.3 % (0.0-1.0); %Eosinophils 0.7 % (0.0-10.0); %Lymphocytes 15.6 % (21.0-51.0); %Monocytes 15.1 % (0.0-10.0); %Neutrophils 68.1 % (42.0-75.0); Hematocrit 38.4 % (36.0-47.0); Hemoglobin 13.1 g/dL (12.0-16.0); Mean Corpuscular HGB CONC 34.1 g/dL (32.0-36.0); Mean Corpuscular Volume 93.7 fL (78.0-98.0); Mean Platelet Volume 9.8 fL (7.4-10.4); Platelet Count 234 10x3/uL (130-400); RBC Distribution Width 12.6 % (11.5-14.5)
[2024-08-19 03:45] LABS: ALT (SGPT) 10 U/L (8-55); AST (SGOT) 17 U/L (5-34); Alkaline Phosphatase 62 U/L (40-110); Anion Gap 14 mmol/L (10-20); BUN (Urea Nitrogen) 21 mg/dL (9.8-20.1); Bilirubin, Total 0.9 mg/dL (0.2-1.2); Calc. Creatinine Clearance 0 mL/min (70-130); Calcium 9.3 mg/dL (7.8-10.44); Carbon Dioxide 24 mmol/L (23-31); Chloride 103 mmol/L (98-107); Estimated GFR 49; Globulin 3.6 g/dL (2.4-3.5); Glucose 118 mg/dL (83-110); Potassium 2.9 mmol/L (3.5-5.1); Protein, Total 6.6 g/dL (5.8-8.1); Sodium 138 mmol/L (136-145)
[2024-08-19 03:51] LABS: Troponin I 0.028 ng/mL (< 0.028)
[2024-08-19] MEDS ORDERED: Potassium Chloride 20 MEQ TAB ONE (05:50)
[2024-08-19 07:25] VITALS: BMI 27.6
[2024-08-19] MEDS ORDERED: Ondansetron ODT 4 MG TAB PO PRN (08:07)
[2024-08-19] MEDS ORDERED: Senokot S 8.6-50 MG TAB PO PRN (08:07)
[2024-08-19] MEDS ORDERED: Acetaminophen 325 MG TAB PO PRN (08:07)
[2024-08-19] MEDS ORDERED: Ondansetron PF 4 MG/2 ML Vial IVP PRN (08:07)
[2024-08-19] MEDS ORDERED: Calcium Carbonate 500 MG ChewTAB PO PRN (08:07)
[2024-08-19] MEDS ORDERED: cefTRIAXone\\ROCEPHIN 1 GM in Sodium Chloride 0.9% 100 ML IVPB SCH (08:15)
[2024-08-19] MEDS ORDERED: Sodium Chloride 0.65% Nasal 44 ML BOT EA NARE PRN (09:27)
[2024-08-19] MEDS: Meropenem 1 GM in Sodium Chloride 0.9% 100 ML IVPB SCH ×2 (09:43→17:05)
[2024-08-19] MEDS: NIFEdipine XL 60 MG ER.TAB PO SCH (09:46)
[2024-08-19] MEDS: Enoxaparin 40 MG (0.4 mL) SYRINGE SC SCH (09:46)
[2024-08-19] MEDS: hydrALAZINE 25 MG TAB PO SCH (09:47)
[2024-08-19] MEDS: Potassium Chloride 20 MEQ TAB PO SCH (09:47)
[2024-08-19] MEDS: Aspirin Chewable 81 MG TAB PO SCH (09:47)
[2024-08-19] MEDS: FLU (Fluad Triv) TS24-25 (65UP)/MF59C/PF 45 MCG/0.5 ML Syringe IM ONE (09:47)
[2024-08-19] MEDS: Guaifenesin DM 100-10/5 ML UDCUP PO PRN (09:50)
[2024-08-19] MEDS ORDERED: Albuterol 2.5 MG (3 mL) NEB NEB PRN (10:03)
[2024-08-19 10:08] LABS: Influenza A by NAA Not Detected (NotDetected); Influenza B by NAA Not Detected (NotDetected); RSV by NAA Not Detected (NotDetected); SARS-CoV-2 NAA Rapid Test Not Detected (NotDetected)
[2024-08-19] MEDS: Simvastatin 10 MG TAB PO SCH (20:17)
[2024-08-20 05:50] LABS: #Basophils Less than 0.03 10x3/uL (0.0-0.2); %Basophils 0.3 % (0.0-1.0); %Eosinophils 2.3 % (0.0-10.0); %Lymphocytes 16.3 % (21.0-51.0); %Monocytes 12.3 % (0.0-10.0); %Neutrophils 68.3 % (42.0-75.0); Hematocrit 36.9 % (36.0-47.0); Hemoglobin 12.4 g/dL (12.0-16.0); Mean Corpuscular HGB CONC 33.6 g/dL (32.0-36.0); Mean Corpuscular Hemoglobin 31.8 pg (27.0-31.0); Mean Corpuscular Volume 94.6 fL (78.0-98.0); Platelet Count 250 10x3/uL (130-400); RBC Distribution Width 12.8 % (11.5-14.5)
[2024-08-20 06:05] LABS: Anion Gap 14 mmol/L (10-20); BUN (Urea Nitrogen) 18 mg/dL (9.8-20.1); Calc. Creatinine Clearance 53 mL/min (70-130); Carbon Dioxide 24 mmol/L (23-31); Chloride 106 mmol/L (98-107); Estimated GFR 65; Glucose 109 mg/dL (83-110); Potassium 3.8 mmol/L (3.5-5.1); Sodium 140 mmol/L (136-145)
[2024-08-20] MEDS: Spironolactone 25 MG TAB PO SCH (08:07)
[2024-08-20] MEDS: Fluticasone Propionate Nasal Spray 16 gm Bottle NASAL SCH (20:29)
[2024-08-21 04:59] LABS: #Basophils Less than 0.03 10x3/uL (0.0-0.2); %Basophils 0.3 % (0.0-1.0); %Eosinophils 3.1 % (0.0-10.0); %Lymphocytes 17.7 % (21.0-51.0); %Monocytes 12.2 % (0.0-10.0); %Neutrophils 65.9 % (42.0-75.0); Hematocrit 38.6 % (36.0-47.0); Hemoglobin 13.1 g/dL (12.0-16.0); Mean Corpuscular HGB CONC 33.9 g/dL (32.0-36.0); Mean Corpuscular Hemoglobin 32.1 pg (27.0-31.0); Mean Corpuscular Volume 94.6 fL (78.0-98.0); Mean Platelet Volume 9.8 fL (7.4-10.4); Platelet Count 274 10x3/uL (130-400); RBC Distribution Width 12.7 % (11.5-14.5); Red Blood Cell (RBC) Count 4.08 mill/uL (4.20-5.40)
[2024-08-21 05:11] LABS: Anion Gap 15 mmol/L (10-20); BUN (Urea Nitrogen) 14 mg/dL (9.8-20.1); Calc. Creatinine Clearance 56 mL/min (70-130); Calcium 9.1 mg/dL (7.8-10.44); Carbon Dioxide 25 mmol/L (23-31); Chloride 105 mmol/L (98-107); Estimated GFR 70; Glucose 106 mg/dL (83-110); Potassium 3.7 mmol/L (3.5-5.1); Sodium 141 mmol/L (136-145)
[2024-08-21 07:30] VITALS: TEMP 97.5
[2024-08-21] MEDS: Loratadine 10 MG TAB PO SCH (11:20)
[2024-08-21] MEDS: Saccharomyces boulardii 250 MG CAP PO SCH (11:20)
[2024-08-21 12:45] VITALS: BP 137/77
[2024-08-22] MEDS ORDERED: Saccharomyces boulardii 250 MG CAP PO SCH (09:00)
== END 2024-08-21 14:00 | disposition home or self-care (01) | DRG 689 ==
LOC: ERS 01:35 → T4-A 06:54 → OBSVTOIN 08-21 07:47
PROVIDERS: ADMIT Student in an Organized Health Care Education/Training Program; ATTEND Internal Medicine
DX: N30.00 Acute cystitis without hematuria (principal); G92.8 Other toxic encephalopathy; J96.01 Acute respiratory failure with hypoxia; G93.41 Metabolic encephalopathy; E87.6 Hypokalemia; N18.31 Chronic kidney disease, stage 3a; I12.9 Hypertensive chronic kidney disease with stage 1 through stage 4 chronic kidney disease, or unspecified chronic kidney disease; J20.9 Acute bronchitis, unspecified; E78.5 Hyperlipidemia, unspecified; J01.90 Acute sinusitis, unspecified; Z88.8 Allergy status to other drugs, medicaments and biological substances; Z88.0 Allergy status to penicillin; Z79.899 Other long term (current) drug therapy
CPT/HCPCS: 0241U; 36415; 36416; 70450; 71045; 71250; 80048; 80053; 81001; 83605; 83880; 84484; 85025; 87040; 87077; 87086; 87186; 87428; 93005; 96365; 96366; 96372; 96375; 96376; G0378; J0456; J0696; J1650; J2185